=== PATIENT | male | born 1975 | race Hispanic/Latino ===

== ENCOUNTER 2024-01-26 05:53 | Day surgery (SDC) | payer BC ==
[~2024-01-26] VITALS: Ht 175.3 cm; Wt 90.7 kg
[2024-01-26] VITALS (10 sets, daily range): BP systolic 111–134; BP diastolic 50–68; PULSE 57–74; RESP 15–58
[2024-01-26] MEDS ORDERED: LEVO137T24 PO (06:56)
[2024-01-26] MEDS: 0.9%NACL 1000ML 1,000 ML IV ONE (07:06)
[2024-01-26] MEDS ORDERED: PROPOFOL 10 MG/ML 20ML VIAL IV ONE ×2 (09:06)
== END 2024-01-26 10:20 | disposition home or self-care (01) ==
LOC: DAH 05:53 → ENDO 05:53
PROVIDERS: ATTEND Internal Medicine Gastroenterology
DX: Z12.11 Encounter for screening for malignant neoplasm of colon (principal); K63.89 Other specified diseases of intestine; K29.50 Unspecified chronic gastritis without bleeding; K31.A0 Gastric intestinal metaplasia, unspecified; K31.89 Other diseases of stomach and duodenum; D50.0 Iron deficiency anemia secondary to blood loss (chronic); K64.9 Unspecified hemorrhoids; E03.9 Hypothyroidism, unspecified; Z88.0 Allergy status to penicillin; Z83.3 Family history of diabetes mellitus; Z80.9 Family history of malignant neoplasm, unspecified; Z88.8 Allergy status to other drugs, medicaments and biological substances; Z72.89 Other problems related to lifestyle; Z79.890 Hormone replacement therapy; Z98.890 Other specified postprocedural states
CPT/HCPCS: 45385; 43239; J7030; J2704 ×2; A4620; A4215 ×2; A4223; A4222; A4221; A4663; A4606; J3490